=== PATIENT | female | born 1960 | race Caucasian/White ===

== ENCOUNTER → 2017-08-27 | Outpatient (CLI) | payer OTHER ==
[~2017-08-27] MED LIST: HYDACE5 PO
[2017-08-27 18:50] LABS: BASOPHILS ABSOLUTE AUTO 0.05 K/mm3 (0.00-0.23); BASOPHILS PERCENT AUTO 1 % (0-2); EOSINOPHILS ABSOLUTE AUTO 0.45 K/mm3 (0.00-0.68); EOSINOPHILS PERCENT AUTO 6 % (0-6); Hematocrit 36.2 % (33.0-51.0); Hemoglobin 12.2 g/dL (11.5-16.0); IMMATURE GRAN ABSOLUTE AUTO 0.02 K/mm3 (0.00-0.10); IMMATURE GRAN PERCENT AUTO 0 % (0-1); LYMPHOCYTES ABSOLUTE AUTO 2.05 K/mm3 (0.84-5.20); LYMPHOCYTES PERCENT AUTO 27 % (21-46); MONOCYTES ABSOLUTE AUTO 0.49 K/mm3 (0.16-1.47); MONOCYTES PERCENT AUTO 7 % (4-13); Mean Corpuscular HGB 30.4 pg (26.0-34.0); Mean Corpuscular HGB Conc 33.7 g/dL (31.5-36.5); Mean Corpuscular Volume 90 fL (80-100); Mean Platelet Volume 9.8 fL (9.1-12.4); NEUTROPHILS ABSOLUTE AUTO 4.52 K/mm3 (1.96-9.15); NEUTROPHILS PERCENT AUTO 60 % (41-73); Platelet Count 299 K/mm3 (150-400); RDW Coefficient Variation 13.4 % (11.7-14.2); RDW Standard Deviation 44.3 fL (35.1-46.3); Red Blood Cell Count 4.01 M/mm3 (3.80-5.20); White Blood Cell Count 7.58 K/mm3 (4.00-11.30)
[2017-08-27 19:02] LABS: Albumin, Blood 3.7 g/dL (3.4-5.0); Albumin/Globulin Ratio 1.1 (0.8-1.8); Bilirubin, Total 0.3 mg/dL (0.1-1.0); Bun/Creatinine Ratio 17.5 (12.0-20.0); Calcium, Blood 9.2 mg/dL (8.5-10.1); Creatinine, Blood 1.03 mg/dL (0.40-1.00); Globulin, Blood 3.3 g/dL (2.2-4.0); Potassium, Blood 3.9 mmol/L (3.5-5.5)
== END ==
LOC: LAB EV 18:45
PROVIDERS: Physician Assistant
DX: L03.019 Cellulitis of unspecified finger (principal)
CPT/HCPCS: 80053; 83516; 85025; 85651; 86225; 86235

== ENCOUNTER 2021-07-27 21:21 | Emergency (ER) | payer OTHER ==
[~2021-07-27] VITALS: Ht 177.8 cm; Wt 72.6 kg
[2021-07-27] MEDS ORDERED: ONDA4ODT MM (21:42)
[2021-07-27] MEDS ORDERED: BENZ100A PO (21:42)
[2021-07-27] MEDS ORDERED: EPINEPHRIN0.3 MG/0.1 (22:15)
== END 2021-07-27 22:16 | disposition home or self-care (01) ==
LOC: ER 21:21
DX: U07.1 COVID-19 (principal); Z79.891 Long term (current) use of opiate analgesic
CPT/HCPCS: 99283; A9270